=== PATIENT | male | born 1995 | race American Indian/Alaskan Native ===

== ENCOUNTER 2017-03-04 03:23 | Inpatient (IN) | payer OTHER ==
[2017-03-04] MEDS ORDERED: TORADOL ONE ×2 (03:47→10:38)
[2017-03-04] MEDS ORDERED: ZOFRAN ONE ×2 (03:48→10:38)
[2017-03-04] MEDS ORDERED: TORADOL IV ONE (03:58)
[2017-03-04] MEDS ORDERED: ZOFRAN IV ONE (03:59)
[2017-03-04 05:10] LABS: Basophils % (Auto) 0.4 % (0.0-1.8); Eosinophils % (Auto) 0.1 % (0.0-4.3); Hematocrit 39.8 % (35.5-45.6); Mean Corpuscular HGB Conc 33 % (32-34); Platelet Count 216 K/mm3 (140-440); Red Blood Count 5.81 M/mm3 (3.65-5.03); Red Cell Distribution Width 18.1 % (13.2-15.2); White Blood Count 8.5 K/mm3 (4.5-11.0)
[2017-03-04 05:18] LABS: Mean Corpuscular Hemoglobin 22 pg (28-32); Mean Corpuscular Volume 68 fl (84-94)
[2017-03-04 05:28] LABS: Alanine Aminotransferase 17 units/L (7-56); Albumin 4.3 g/dL (3.9-5); Albumin/Globulin Ratio 1.2 %; Alkaline Phosphatase 67 units/L (35-129); Anion Gap 23 mmol/L; Blood Urea Nitrogen 14 mg/dL (9-20); Calcium 9.4 mg/dL (8.4-10.2); Carbon Dioxide 19 mmol/L (22-30); Chloride 103.4 mmol/L (98-107); Glucose 140 mg/dL (75-100); Lipase 10 units/L (13-60); Potassium 3.5 mmol/L (3.6-5.0); Sodium 142 mmol/L (137-145); Total Protein 7.9 g/dL (6.3-8.2)
[2017-03-04] MEDS ORDERED: NACL ONE (06:04)
--- NOTE | 2017-03-04 06:51 | Cat Scan Report ---
FINAL REPORT EXAM: CT ABDOMEN PELVIS W CON HISTORY: abdominal pain TECHNIQUE: Routine imaging was obtained of the abdomen and pelvis following the intravenous injection of 100 cc of Omnipaque 350. Sagittal and coronal reconstructions were obtained. There are no previous studies available for comparison. FINDINGS: The lung bases are clear. Pleural fluid is not seen. The liver, spleen, gallbladder, pancreas, adrenal glands and kidneys all appear normal. The bowel loops are remarkable for a localized dilated loop of small bowel left of midline in the mid abdomen having a diameter of 4.2 cm and containing fluid. There is no evidence of bowel wall thickening. A localize closed loop partial obstruction cannot be excluded. The vascular structures enhance normally. The appendix is not seen. Free fluid is not identified. In the pelvis the prostate gland appear normal. Free fluid is not seen. Bones and soft tissues appear well maintained. IMPRESSION: Suspicious localized dilated loop of small bowel in the mid abdomen containing fluid as described. A localize closed loop obstruction cannot be excluded. The findings were discussed with Dr. Rodriguez at 6:49 a.m. per phone conversation.
[2017-03-04] MEDS ORDERED: DILAUDID IV ONE (06:55)
[2017-03-04] MEDS ORDERED: DILAUDID ONE ×2 (06:55→09:02)
[2017-03-04] MEDS ORDERED: ZOSYN/NS 4.5GM/100ML 4.5 GM/100 ML VIAL IV ONE (06:57)
[2017-03-04] MEDS ORDERED: NACL 0.9% 1000 ML 1,000 ML IV ONE (06:57)
--- NOTE | 2017-03-04 06:58 | Emergency Department Report ---
ED Abdominal Pain HPI - General Chief Complaint: Abdominal Pain Stated Complaint: CHRONS DISEASE Source: patient, RN notes reviewed Mode of arrival: Ambulatory Limitations: No Limitations - History of Present Illness Initial Comments: This is a 22-year-old male, the patient is previously unknown to this provider. He reports a past medical history of partial small bowel resection at another hospital last year. He does not think he has Crohn's disease, to me he denies biopsy or colonoscopy. He presents to the ER complaining diffuse abdominal pain , nausea vomiting, cramping. He is passing gas. His pain is sharp, and increases with palpation, and it decreases with rest. He denies fever, and he denies irritative and obstructive urinary symptoms. MD Complaint: abdominal pain -: Sudden Location: diffuse Severity scale (0 -10): 10 Quality: cramping, aching Consistency: constant Improves With: medication Worsens With: eating Associated Symptoms: nausea, vomiting - Related Data Previous Rx's Medication Instructions Recorded Last Taken Type oxyCODONE /ACETAMINOPHEN [Percocet 1 tab PO Q4H PRN #30 tablet 03/05/17 Unknown Rx 5/325 mg] Allergies Allergy/AdvReac Type Severity Reaction Status Date / Time No Known Allergies Allergy Verified 03/04/17 03:55 ED Review of Systems ROS: Stated complaint: CHRONS DISEASE Other details as noted in HPI Constitutional: malaise. denies: fever Eyes: denies: eye discharge ENT: denies: epistaxis Respiratory: denies: cough Cardiovascular: denies: chest pain Gastrointestinal: abdominal pain, nausea, vomiting Genitourinary: denies: dysuria, testicular pain Musculoskeletal: denies: back pain Skin: denies: lesions Neurological: weakness Psychiatric: anxiety ED Past Medical Hx - Past Medical History Additional medical history: Crohns Disease - Surgical History Additional Surgical History: Colectomy - Social History Smoking Status: Never Smoker Substance Use Type: None - Medications Home Medications: Home Medications Medication Instructions Recorded Confirmed Last Taken Type oxyCODONE /ACETAMINOPHEN [Percocet 1 tab PO Q4H PRN #30 tablet 03/05/17 Unknown Rx 5/325 mg] ED Physical Exam - General Limitations: No Limitations General appearance: alert, in distress - Head Head exam: Present: atraumatic, normocephalic - Eye Eye exam: Present: normal appearance, EOMI - ENT ENT exam: Present: normal exam, normal orophraynx, mucous membranes moist, normal external ear exam - Neck Neck exam: Present: normal inspection, full ROM. Absent: tenderness, meningismus - Respiratory Respiratory exam: Present: normal lung sounds bilaterally. Absent: respiratory distress, wheezes, rales, rhonchi, stridor, chest wall tenderness, accessory muscle use, decreased breath sounds, prolonged expiratory - Cardiovascular Cardiovascular Exam: Present: regular rate, normal rhythm, normal heart sounds. Absent: bradycardia, tachycardia, irregular rhythm, systolic murmur, diastolic murmur, rubs, gallop - GI/Abdominal GI/Abdominal exam: Present: soft, tenderness. Absent: distended, guarding - Rectal Rectal exam: Present: deferred - Extremities Exam Extremities exam: Present: normal inspection, full ROM, normal capillary refill. Absent: pedal edema, joint swelling, calf tenderness - Back Exam Back exam: Present: normal inspection, full ROM. Absent: tenderness, CVA tenderness (R), CVA tenderness (L), muscle spasm, paraspinal tenderness, vertebral tenderness - Neurological Exam Neurological exam: Present: alert, oriented X3, other (Extraocular movements intact. Tongue midline. No facial droop. Facial sensation intact to light touch in the V1, V2, V3 distribution bilaterally. 5 and 5 strength in 4 extremities.. Sensation is intact to light touch in 4 extremities.). Absent: motor sensory deficit - Psychiatric Psychiatric exam: Present: normal affect, normal mood - Skin Skin exam: Present: warm, dry, intact, normal color. Absent: rash ED Course Vital Signs 03/04/17 03/04/17 03/04/17 03:34 07:06 07:09 Temperature 99.2 F 99.4 F Pulse Rate 75 64 Respiratory 18 16 Rate Blood Pressure 138/74 Blood Pressure 138/74 116/64 [Left] O2 Sat by Pulse 100 99 95 Oximetry 03/04/17 03/04/17 03/04/17 07:10 07:20 07:22 Temperature Pulse Rate 64 Respiratory 13 16 Rate Blood Pressure 116/64 Blood Pressure [Left] O2 Sat by Pulse 95 96 99 Oximetry 03/04/17 03/04/17 03/04/17 07:30 07:40 07:50 Temperature Pulse Rate 72 67 74 Respiratory 11 L 15 11 L Rate Blood Pressure 122/68 122/68 122/68 Blood Pressure [Left] O2 Sat by Pulse 98 99 100 Oximetry 03/04/17 03/04/17 03/04/17 08:00 08:10 08:20 Temperature Pulse Rate 85 65 66 Respiratory 13 14 13 Rate Blood Pressure 123/73 123/73 123/73 Blood Pressure [Left] O2 Sat by Pulse 99 100 100 Oximetry 03/04/17 03/04/17 03/04/17 08:30 08:40 08:50 Temperature Pulse Rate 66 74 77 Respiratory 14 15 11 L Rate Blood Pressure 131/78 131/78 131/78 Blood Pressure [Left] O2 Sat by Pulse 99 100 100 Oximetry ED Medical Decision Making - Lab Data Result diagrams: 03/05/17 05:53 03/05/17 05:53 Vital Signs 03/04/17 03/04/17 03/04/17 03:34 07:06 07:22 Temperature 99.2 F 99.4 F Pulse Rate 75 64 Respiratory 18 16 16 Rate Blood Pressure 138/74 Blood Pressure 138/74 116/64 [Left] O2 Sat by Pulse 100 99 99 Oximetry Lab Results 03/04/17 03/04/17 03/04/17 Range/Units 04:36 04:36 07:43 WBC 8.5 (4.5-11.0) K/mm3 RBC 5.81 H (3.65-5.03) M/mm3 Hgb 13.0 (11.8-15.2) gm/dl Hct 39.8 (35.5-45.6) % MCV 68 L (84-94) fl MCH 22 L (28-32) pg MCHC 33 (32-34) % RDW 18.1 H (13.2-15.2) % Plt Count 216 (140-440) K/mm3 Lymph % (Auto) 10.3 L (13.4-35.0) % Gosper % (Auto) 6.1 (0.0-7.3) % Eos % (Auto) 0.1 (0.0-4.3) % Baso % (Auto) 0.4 (0.0-1.8) % Lymph # 0.9 L (1.2-5.4) K/mm3 Gosper # 0.5 (0.0-0.8) K/mm3 Eos # 0.0 (0.0-0.4) K/mm3 Baso # 0.0 (0.0-0.1) K/mm3 Seg Neutrophils % 83.1 H (40.0-70.0) % Seg Neutrophils # 7.1 (1.8-7.7) K/mm3 PT (12.2-14.9) Sec. INR (0.87-1.13) APTT (24.2-36.6) Sec. Sodium 142 (137-145) mmol/L Potassium 3.5 L (3.6-5.0) mmol/L Chloride 103.4 (98-107) mmol/L Carbon Dioxide 19 L (22-30) mmol/L Anion Gap 23 mmol/L BUN 14 (9-20) mg/dL Creatinine 0.8 (0.8-1.5) mg/dL Estimated GFR > 60 ml/min BUN/Creatinine Ratio 17.50 % Glucose 140 H (75-100) mg/dL Lactic Acid 1.20 (0.7-2.0) mmol/L Calcium 9.4 (8.4-10.2) mg/dL Total Bilirubin 1.00 (0.1-1.2) mg/dL AST 30 (5-40) units/L ALT 17 (7-56) units/L Alkaline Phosphatase 67 (35-129) units/L Total Protein 7.9 (6.3-8.2) g/dL Albumin 4.3 (3.9-5) g/dL Albumin/Globulin Ratio 1.2 % Lipase 10 L (13-60) units/L Blood Type Antibody Screen 03/04/17 03/04/17 Range/Units 07:43 07:43 WBC (4.5-11.0) K/mm3 RBC (3.65-5.03) M/mm3 Hgb (11.8-15.2) gm/dl Hct (35.5-45.6) % MCV (84-94) fl MCH (28-32) pg MCHC (32-34) % RDW (13.2-15.2) % Plt Count (140-440) K/mm3 Lymph % (Auto) (13.4-35.0) % Gosper % (Auto) (0.0-7.3) % Eos % (Auto) (0.0-4.3) % Baso % (Auto) (0.0-1.8) % Lymph # (1.2-5.4) K/mm3 Gosper # (0.0-0.8) K/mm3 Eos # (0.0-0.4) K/mm3 Baso # (0.0-0.1) K/mm3 Seg Neutrophils % (40.0-70.0) % Seg Neutrophils # (1.8-7.7) K/mm3 PT 15.2 H (12.2-14.9) Sec. INR 1.14 H (0.87-1.13) APTT 32.6 (24.2-36.6) Sec. Sodium (137-145) mmol/L Potassium (3.6-5.0) mmol/L Chloride (98-107) mmol/L Carbon Dioxide (22-30) mmol/L Anion Gap mmol/L BUN (9-20) mg/dL Creatinine (0.8-1.5) mg/dL Estimated GFR ml/min BUN/Creatinine Ratio % Glucose (75-100) mg/dL Lactic Acid (0.7-2.0) mmol/L Calcium (8.4-10.2) mg/dL Total Bilirubin (0.1-1.2) mg/dL AST (5-40) units/L ALT (7-56) units/L Alkaline Phosphatase (35-129) units/L Total Protein (6.3-8.2) g/dL Albumin (3.9-5) g/dL Albumin/Globulin Ratio % Lipase (13-60) units/L Blood Type O POSITIVE Antibody Screen Negative - Radiology Data Radiology results: report reviewed, image reviewed CT scan with IV contrast demonstrates localized dilated loop of small bowel in the mid abdomen containing fluid, likely small bowel obstruction, with closed loop component. - Medical Decision Making Differential diagnosis: Constipation, obstruction, ileus, perforation Assessment and plan: 22-year-old male with diffuse abdominal pain, nausea vomiting, CT scan suggesting closed loop bowel obstruction. Empiric antibiotics , nothing by mouth status, nasogastric tube ordered. Anastasia requested emergent general surgery consultation, and the general surgeon, Dr Rebecca Rebolledo, is currently in the department evaluating the patient, accepts the patient to his service. Patient mostly regarding the operating room for diagnostic/therapeutic surgical intervention. Critical care attestation.: If time is entered above; I have spent that time in minutes in the direct care of this critically ill patient, excluding procedure time. ED Disposition Clinical Impression: Small bowel obstruction Disposition: [id number] OP ADMIT IP TO THIS HOSP Is pt being admited?: Yes Condition: Good
[2017-03-04] MEDS ORDERED: NACL 0.9% 1000 ML 1,000 ML ONE ×2 (07:00→10:38)
[2017-03-04] MEDS ORDERED: XYLOCAINE TOPICAL 4% TP ONE (07:58)
[2017-03-04 08:46] LABS: INR 1.14 (0.87-1.13)
[2017-03-04 08:47] LABS: Partial Thromboplastin Time 32.6 Sec. (24.2-36.6)
--- NOTE | 2017-03-04 08:55 | History and Physical Report ---
History of Present Illness Date of examination: 03/04/17 Date of admission: 03/04/17 Chief complaint: abd pain History of present illness: 22 year old male around 1 year s/p small bowel resection at [facility] who developed increasing abd pain, distension, with normal labs and a CT scan of the abd pelvis revealing closed loop small bowel obstruction. He is otherwise healthy. Past History Past Surgical History: bowel surgery (s/p small bowel resection one year ago) Social history: no significant social history Family history: no significant family history Medications and Allergies Allergies Allergy/AdvReac Type Severity Reaction Status Date / Time No Known Allergies Allergy Verified 03/04/17 03:55 Home Medications Medication Instructions Recorded Confirmed Last Taken Type No Known Home Medications [No 03/04/17 03/04/17 Unknown History Reported Home Medications] Active Meds: Active Medications Lidocaine (Xylocaine Topical 2%) 1 applic TP ONCE.ED ONE Stop: 03/04/17 09:01 Review of Systems - Constitutional other (abd pain) Exam Vital Signs Temp Pulse Resp BP Pulse Ox 99.2 F 75 18 138/74 100 03/04/17 03:34 03/04/17 03:34 03/04/17 03:34 03/04/17 03:34 03/04/17 03:34 - General physical appearance Positive: moderate distress - Eyes Positive: PERRL, normal occular movement - ENT Positive: normal pinna, normal nares, normal mucosa, no hearing loss, no congestion - Neck Positive: no masses, no bruits, trachea midline, no venous distension - Respiratory Positive: normal expansion, normal respiratory effort, clear to auscultation - Cardiovascular Rhythm: regular - Extremities Extremities: no ischemia, pulses symmetrical, No edema Peripheral Pulses: within normal limits - Breasts Breasts: normal - Abdomen Abdomen: Present: bowel sounds hypoactive, surgical scars (whss, tender to deep palpation periumbilical area, mildly distended) - Genitourinary Male Genitourinary: normal - Neurologic Neurologic: alert and oriented to time, place and person, motor strength and sensation are grossly intact - Psychiatric Psychiatric: appropriate mood/affect, intact judgment & insight Results - Labs 03/04/17 04:36 03/04/17 04:36 Abnormal lab results 03/04/17 03/04/17 03/04/17 Range/Units 04:36 04:36 07:43 RBC 5.81 H (3.65-5.03) M/mm3 MCV 68 L (84-94) fl MCH 22 L (28-32) pg RDW 18.1 H (13.2-15.2) % Lymph % (Auto) 10.3 L (13.4-35.0) % Lymph # 0.9 L (1.2-5.4) K/mm3 Seg Neutrophils % 83.1 H (40.0-70.0) % PT 15.2 H (12.2-14.9) Sec. INR 1.14 H (0.87-1.13) Potassium 3.5 L (3.6-5.0) mmol/L Carbon Dioxide 19 L (22-30) mmol/L Glucose 140 H (75-100) mg/dL Lipase 10 L (13-60) units/L Diabetes panel 03/04/17 Range/Units 04:36 Sodium 142 (137-145) mmol/L Potassium 3.5 L (3.6-5.0) mmol/L Chloride 103.4 (98-107) mmol/L Carbon Dioxide 19 L (22-30) mmol/L BUN 14 (9-20) mg/dL Creatinine 0.8 (0.8-1.5) mg/dL Glucose 140 H (75-100) mg/dL Calcium 9.4 (8.4-10.2) mg/dL AST 30 (5-40) units/L ALT 17 (7-56) units/L Alkaline Phosphatase 67 (35-129) units/L Total Protein 7.9 (6.3-8.2) g/dL Albumin 4.3 (3.9-5) g/dL Calcium panel 03/04/17 Range/Units 04:36 Calcium 9.4 (8.4-10.2) mg/dL Albumin 4.3 (3.9-5) g/dL Pituitary panel 03/04/17 Range/Units 04:36 Sodium 142 (137-145) mmol/L Potassium 3.5 L (3.6-5.0) mmol/L Chloride 103.4 (98-107) mmol/L Carbon Dioxide 19 L (22-30) mmol/L BUN 14 (9-20) mg/dL Creatinine 0.8 (0.8-1.5) mg/dL Glucose 140 H (75-100) mg/dL Calcium 9.4 (8.4-10.2) mg/dL Adrenal panel 03/04/17 Range/Units 04:36 Sodium 142 (137-145) mmol/L Potassium 3.5 L (3.6-5.0) mmol/L Chloride 103.4 (98-107) mmol/L Carbon Dioxide 19 L (22-30) mmol/L BUN 14 (9-20) mg/dL Creatinine 0.8 (0.8-1.5) mg/dL Glucose 140 H (75-100) mg/dL Calcium 9.4 (8.4-10.2) mg/dL Total Bilirubin 1.00 (0.1-1.2) mg/dL AST 30 (5-40) units/L ALT 17 (7-56) units/L Alkaline Phosphatase 67 (35-129) units/L Total Protein 7.9 (6.3-8.2) g/dL Albumin 4.3 (3.9-5) g/dL Assessment and Plan Closed loop obstruction of small intestine secondary to mech adhesion, Admit, NPO, antibiotics and expl lap, adhesiolysis , possible small bowel resection.
[2017-03-04] MEDS ORDERED: XYLOCAINE TOPICAL 2% TP ONE (09:00)
[2017-03-04] MEDS ORDERED: ZEMURON IV ONE (09:02)
[2017-03-04] MEDS ORDERED: XYLOCAINE MPF 2% ONE (09:02)
[2017-03-04] MEDS ORDERED: QUELICIN ONE (09:02)
[2017-03-04] MEDS ORDERED: DIPRIVAN 10 MG/ML IV ONE (09:02)
--- NOTE | 2017-03-04 09:39 | Anesthesia Day of Surgery ---
Anesthesia Day of Surgery - Day of Surgery Patient Examined: Yes Patient H&P Reviewed: Yes Patient is NPO: Yes
--- NOTE | 2017-03-04 09:39 | Anesthesia Consultation ---
Anesthesia Consult and Med Hx Date of service: 03/04/17 - Airway Anesthetic Teeth Evaluation: Good ROM Head & Neck: Adequate Mental/Hyoid Distance: Adequate Mallampati Class: Class II Intubation Access Assessment: Probably Good - Pulmonary Exam CTA: Yes - Cardiac Exam Cardiac Exam: RRR - Pre-Operative Health Status ASA Pre-Surgery Classification: ASA2 Proposed Anesthetic Plan: General - Pulmonary Hx Smoking: No - Cardiovascular System Hx Hypertension: No - Central Nervous System Hx Neuromuscular Disorder: No - Endocrine Hx Non-Insulin Dependent Diabetes: No
[2017-03-04] MEDS ORDERED: DILAUDID IV PRN (09:43)
[2017-03-04] MEDS ORDERED: PEPCID PO NR (10:00)
[2017-03-04] MEDS ORDERED: NACL 0.9% 1000 ML 1,000 ML IV SCH (10:00)
[2017-03-04] MEDS ORDERED: VERSED IV NR (10:00)
[2017-03-04] MEDS ORDERED: NACL 0.9% IR ONE (10:10)
[2017-03-04] MEDS ORDERED: XYLOCAINE 1% 20 mL INFILTRATI ONE (10:10)
[2017-03-04] MEDS ORDERED: XYLOCAINE 1% 20 mL ONE (10:26)
[2017-03-04] MEDS ORDERED: PEPCID IV NR (10:30)
[2017-03-04] MEDS ORDERED: ZOFRAN IV PRN ×2 (10:30→11:00)
[2017-03-04] MEDS ORDERED: ROBINUL ONE (10:38)
[2017-03-04] MEDS ORDERED: NEOSTIGMINE ONE (10:38)
--- NOTE | 2017-03-04 10:42 | Post Operative Note ---
Pre-op diagnosis: closed loop small bowel obstruction Post-op diagnosis: same Findings: small bowel twisted around adhesive band in pelvis, bowel viable. Procedure: exploratory lap, adhesiolysis, reduction of closed loop small bowel obstruction , bowel viable. Anesthesia: GETA Surgeon: RIGOBERTO BECERRIL Estimated blood loss: none Pathology: list (adhesive band) Condition: stable Disposition: floor
[2017-03-04] MEDS ORDERED: DULCOLAX PR PRN (11:00)
[2017-03-04] MEDS ORDERED: MILK OF MAGNESIA PO PRN (11:00)
[2017-03-04] MEDS ORDERED: TYLENOL PO PRN (11:00)
--- NOTE | 2017-03-04 12:08 | Operative Report ---
PREOPERATIVE DIAGNOSIS: Closed loop small-bowel obstruction. POSTOPERATIVE DIAGNOSIS: Closed loop small-bowel obstruction. OPERATIVE FINDINGS: The distal jejunum was twisted around adhesive band in the pelvis, producing a closed loop obstruction; however, once reduced the bowel was completely viable and did not require resection. PROCEDURE: Exploratory laparotomy, adhesiolysis, reduction of closed loop of the small bowel and the bowel was viable and did not require small bowel resection. ANESTHESIA: The procedure under general. SURGEON: Ankush Rebolledo MD BLOOD LOSS: None. PATHOLOGY: I sent the adhesive band to permanent pathology. CONDITION: Stable. DISPOSITION: To the floor. DESCRIPTION OF PROCEDURE: After informed consent, the patient received IV antibiotics, was induced under general anesthesia with compression stockings in place. He was sterilely prepped and draped in a supine fashion after induction by Anesthesia. An Ioban drape was used. A standard midline incision was made on his previous scar and carried down sharply to the skin with a 15 scalpel. I dissected down to the underlying linea alba, elevated between two curved hemostats. A small castillo was made and intra-abdominal cavity was entered. There were no significant adhesions in the area I entered. I was able to extend the incision inferiorly and superiorly and avoid any small bowel injury. The operative findings consisted of a closed loop obstruction where a portion of the distal jejunum was twisted around the mesentery and stuck to an adhesion down on the pelvis. The bowel was viable. Once I took down the adhesive band, I performed adhesiolysis, which did not require excessive dissection, the adhesions were not that significant except for the adhesive band causing the closed loop obstruction. Once the bowel was untwisted, it was completely viable with active peristalsis. I sent the adhesive band for permanent pathology. There was no obvious lymphadenopathy in the mesentery. The bowel appeared normal. I ran the small intestine from ligament of Treitz to the colon. I examined the colon, liver, gallbladder. I confirmed placement of the NG tube in the stomach. I did not find anything abnormal, I washed out the abdomen with normal saline until clear and then I closed utilizing interrupted #1 Vicryls and aleisha for skin. The sponge and needle count was correct x 2 at the completion of the procedure. The patient was hemodynamically stable throughout. The blood loss was minimal. Specimen consisted of the adhesive band. [facility]# [id number] SILVA/ELIOT CHEEK
[2017-03-04] MEDS: MORPHINE IV PRN (20:11)
[2017-03-04] MEDS ORDERED: CHLORASEPTIC MM PRN (20:21)
[2017-03-05] MEDS: MORPHINE IV PRN ×5 (00:02→23:39)
[2017-03-05 06:32] LABS: Basophils % (Auto) 0.5 % (0.0-1.8); Eosinophils % (Auto) 1.2 % (0.0-4.3); Hematocrit 36.9 % (35.5-45.6); Hemoglobin 11.8 gm/dl (11.8-15.2); Mean Corpuscular HGB Conc 32 % (32-34); Mean Corpuscular Hemoglobin 22 pg (28-32); Mean Corpuscular Volume 69 fl (84-94); Platelet Count 188 K/mm3 (140-440); Red Blood Count 5.32 M/mm3 (3.65-5.03); Red Cell Distribution Width 17.9 % (13.2-15.2); White Blood Count 9.5 K/mm3 (4.5-11.0)
--- NOTE | 2017-03-05 06:46 | Event Note ---
Date: 03/05/17 POD 1 s/p expl lap,adhesiolysis, doing well, VSS AF minimal NG output, NG d/rose , adv to clear liquids, discharge in am if he tolerates PO.
--- NOTE | 2017-03-05 06:50 | Discharge Summary ---
Providers - Providers Date of Admission: 03/04/17 10:42 Date of discharge: 03/06/17 Attending physician: RIGOBERTO BECERRIL Primary care physician: [facility]ER Hospitalization Reason for admission: SBO/ closed loop obstruction Condition: Good Pertinent studies: CT abd and pelvis Procedures: Expl lap, adhesiolysis Hospital course: PT admitted, taken to OR, expl lap ,adhesiolysis, no bowel resection, admitted, NG d/rose POD 1, diet advanced to clear liquids, mobilized, did well, D/Rose POD 2 , f/u as outpatient, given po pain meds. Disposition: DC-01 TO HOME OR SELFCARE Time spent for discharge: 20min Core Measure Documentation - Palliative Care Palliative Care/ Comfort Measures: Not Applicable - Core Measures Any of the following diagnoses?: none Exam - Constitutional Vitals: Temp Pulse Resp BP Pulse Ox 99.9 F H 97 H 17 131/81 98 03/05/17 05:16 03/05/17 05:16 03/05/17 05:16 03/05/17 05:16 03/05/17 05:16 General appearance: Present: no acute distress - EENT Eyes: Present: PERRL ENT: hearing intact, clear oral mucosa - Neck Neck: Present: supple, normal ROM - Respiratory Respiratory effort: normal - Cardiovascular Heart Sounds: Present: S1 & S2. Absent: rub, click - Extremities Extremities: pulses symmetrical, No edema Peripheral Pulses: within normal limits - Abdominal General gastrointestinal: Present: soft, non-tender, non-distended (incision OK) - Musculoskeletal Musculoskeletal: gait normal, strength equal bilaterally - Psychiatric Psychiatric: appropriate mood/affect, intact judgment & insight - Neurologic Neurologic: CNII-XII intact, moves all extremities Plan Activity: advance as tolerated Weight Bearing Status: Full Weight Bearing Diet: regular Wound: open to air Follow up with: PRIMARY CARE, [Primary Care Provider] - 3-5 Days
[2017-03-05 06:51] LABS: Alanine Aminotransferase 11 units/L (7-56); Albumin 3.4 g/dL (3.9-5); Albumin/Globulin Ratio 1.2 %; Alkaline Phosphatase 58 units/L (35-129); Anion Gap 12 mmol/L; BUN/Creatinine Ratio 11; Blood Urea Nitrogen 9 mg/dL (9-20); Calcium 8.1 mg/dL (8.4-10.2); Carbon Dioxide 25 mmol/L (22-30); Chloride 106.8 mmol/L (98-107); Glucose 84 mg/dL (75-100); Potassium 3.9 mmol/L (3.6-5.0); Sodium 140 mmol/L (137-145); Total Protein 6.2 g/dL (6.3-8.2)
[2017-03-06] MEDS: MORPHINE IV PRN (03:55)
[2017-03-06 08:58] VITALS: BP 133/84
[2017-03-06] MEDS ORDERED: PERCOCET 5/325 PO PRN (12:58)
== END 2017-03-06 19:00 | disposition home or self-care (01) | DRG 330 ==
LOC: ED 03:23 → OR 09:34 → 3B-SURG 10:42
PROVIDERS: ADMIT Surgery; ATTEND Surgery
PROC: 0DS80ZZ Reposition Small Intestine, Open Approach (ICD-10-PCS; principal; 2017-03-04)
DX: K56.690 Other partial intestinal obstruction (principal); K50.90 Crohn's disease, unspecified, without complications; K56.51 Intestinal adhesions [bands], with partial obstruction; K56.2 Volvulus; Z79.899 Other long term (current) drug therapy
CPT/HCPCS: 36415; 74177; 80053; 82140; 83690; 85025; 85610; 85730; 86850; 86900; 86901; 88304; 88307; 96361; 96365; 96375; J0330; J1170; J1885; J2270; J2405; J2543; J2704; J2710; J7030; Q9967